=== PATIENT | male | born 1960 | race Two or more races ===

== ENCOUNTER 2022-08-14 09:39 | Outpatient (RCR) | payer OTHER, SELFPAY | END 2022-09-08 23:59 | disposition home or self-care (01) | LOC: SPT 09:39 | PROVIDERS: PCP Family Medicine; Visit Provider Family Medicine | DX: M54.50 Low back pain, unspecified (principal) | CPT/HCPCS: 97113; 97161 ==

== ENCOUNTER 2023-06-24 07:38 | Outpatient (CLI) | payer OTHER, SELFPAY ==
--- NOTE | 2023-06-24 07:42 | MR_ITS ---
WS: [id number] MRI LUMBAR SPINE NONCONTRAST TECHNIQUE: Sagittal T1, T2 and STIR imaging. Axial T1 and T2 imaging. CLINICAL INFORMATION: LOW BACK PAIN W/RADICULOPATHY COMPARISON: CT myelogram 2019 and MRI 2018 FINDINGS: Mild lumbar curve. No acute compression. Disc bulging throughout the lumbar spine. Small disc osteoph yte protrusions in the lower cervical spine at C5-C6 and C6-C7. Disc protrusions in the thoracic spin e at T5-T6 T6-T7 and T8-T9. Mild central canal stenosis with contact of the thoracic cord. Disc bulging throughout the lumbar spine has progressed since the prior MRI and prior CT myelogram. S light retrolisthesis L1 on L2 and L2 on L3 has progressed. L1-L2: Shallow central protrusion. Progressed mild central canal stenosis. Moderate LEFT foraminal na rrowing. Moderate facet arthropathy. L2-L3: Slight retrolisthesis. Mild disc bulging with mild to moderate central canal stenosis progress ed compared to the prior studies. Moderate facet arthropathy. Moderate RIGHT and mild LEFT foraminal narrowing. L3-L4: Mild annular bulging. Narrowing of the subarticular recess bilaterally. Slight impingement tra versing L4 nerve roots. Mild facet arthropathy. Mild LEFT greater than RIGHT foraminal narrowing. L4-L5: Mild disc bulging with narrowing of the RIGHT greater than LEFT subarticular recess. Mild face t arthropathy. Moderate RIGHT and mild LEFT foraminal narrowing. Modest arthropathy. L5-S1: Mild annular bulging with slight impingement traversing S1 nerve roots bilaterally. Mild facet arthropathy. Moderate to severe RIGHT and moderate LEFT foraminal narrowing. Moderate facet arthropa thy. Visualized pelvic bony structures: Normal. Paravertebral soft tissues: Normal. IMPRESSION: 1. Mild lumbar curve. No acute compression. Progressed disc bulging throughout the lumbar spine comp ared to the prior studies. 2. Mild central canal stenosis L1-L2 and mild to moderate L2-L3 progressed compared to the prior miladis dies. 3. Mild annular bulging L3-L4 and L4-L5 with impingement on the subarticular recess worse at RIGHT L 4-5 progressed compared to previous. 4. Disc bulge L5-S1 slightly impinges the traversing S1 nerve roots. 5. Severe RIGHT L5-S1 foraminal narrowing impinges the exiting RIGHT L5 nerve root progressed compar ed to previous. 6. Otherwise moderate foraminal narrowing worse at LEFT L1-2, RIGHT L2-3, and RIGHT L4-5.
== END 2023-06-24 07:39 | disposition home or self-care (01) ==
LOC: RAD 07:38
PROVIDERS: PCP Family Medicine; Visit Provider Family Medicine
DX: M51.16 Intervertebral disc disorders with radiculopathy, lumbar region (principal); M51.37 Other intervertebral disc degeneration, lumbosacral region; M48.07 Spinal stenosis, lumbosacral region
CPT/HCPCS: 72148

== ENCOUNTER 2025-04-11 09:50 | Outpatient (CLI) | payer OTHER, SELFPAY ==
--- NOTE | 2025-04-11 09:54 | USCV_ITS ---
Alexis Plasencia Age: 64 Gender: M : 1960 Exam Date: 04/11/2025 09:59 Ordering Phys: Leigh Walker APRN Technologist: SARAH [place] [facility] [place]: AAA screening HISTORY: Diameter (cm) AP x Transverse x Length Velocity (cm/s) Waveform Prox Aorta: 1.63 x 1.68 x 89.30 Biphasic Mid Aorta: 1.31 x 1.38 x 58.00 Biphasic Distal Aorta: 1.47 x 1.56 x 62.50 Biphasic Right Iliac Prox: 1.16 x 1.36 x 91.70 Triphasic Left Iliac Prox: 1.18 x 1.18 x 72.90 Triphasic Stent Prox Landing x x Aneurysmal Sac Max x x Lt Lat Sac Dim Rt Lat Sac Dim Stent Dist Landing x x Right Iliac Stent x x Left Iliac Stent x x Right Renal Art Left Renal Art FINDINGS: CONCLUSIONS No evidence of abdominal aortic or bilateral iliac aneurysm. Moderate atheromatous disease Neville Luna MD (Electronically Signed) Final Date: 11 April 2025 15:43 S
--- NOTE | 2025-04-11 10:11 | CT_ITS ---
WS: [id number] LDCT LUNG CANCER SCREENING TECHNIQUE: Noncontrast CT of the chest with coronal and sagittal reformatted images. CLINICAL INFORMATION: SCREENING COMPARISON: None. DLP: 97.71 mGy.cm DIvol: Mean CTDIvol: 2.10 (mGy) All CT scans at [facility] use at least one of these dose optimization techniques: automated exposure control; mA and/or kV adjustment per patient size (includes targeted exams where dose is matched to clinical indication); or iterative reconstruction. FINDINGS: Calcified granuloma RIGHT upper lobe. No suspicious pulmonary parenchymal abnormalities. Cardiomegaly. Sternotomy. Aortic calcification. Coronary calcification. CABG. No mediastinal or hilar lymphadenopathy. No axillary lymphadenopathy. Adrenal glands are normal. Mild thoracic curve. Mild thoracic kyphosis. Hypertrophic changes thoracic spine. Disc osteophyte protrusions in the mid thoracic spine with mild central canal stenosis. This is similar to 2019. CT/CT lung screening [id number] IMPRESSION: LUNG-RADS: 1-Negative FOLLOW UP: 12 Month: Continue annual screening with LDCT
== END 2025-04-11 09:51 | disposition home or self-care (01) ==
LOC: RAD 09:52
PROVIDERS: PCP Family Medicine; Visit Provider Nurse Practitioner Family
DX: Z12.2 Encounter for screening for malignant neoplasm of respiratory organs (principal); Z87.891 Personal history of nicotine dependence; Z13.6 Encounter for screening for cardiovascular disorders; J84.10 Pulmonary fibrosis, unspecified; I51.7 Cardiomegaly; Z98.890 Other specified postprocedural states; I70.0 Atherosclerosis of aorta; Z95.1 Presence of aortocoronary bypass graft; M25.78 Osteophyte, vertebrae; M51.24 Other intervertebral disc displacement, thoracic region; M48.04 Spinal stenosis, thoracic region
CPT/HCPCS: 71271; 76706